=== PATIENT | female | born 1960 | race Caucasian/White ===

== ENCOUNTER 2017-11-22 17:14 | Emergency (ER) | payer BC ==
--- NOTE | 2017-11-22 17:31 | EDM.PDOC ---
ED HPI GENERAL MEDICAL PROBLEM - General Chief Complaint: General Stated Complaint: right eye seeing black objects Time Seen by Provider: 11/22/17 17:20 Source of Information: Reports: Patient, Family (), Old Records ([facility] chart/EMR), Other ([facility] EMR) History Limitations: Reports: No Limitations - History of Present Illness INITIAL COMMENTS - FREE TEXT/NARRATIVE: The patient was brought to the emergency room via private automobile by her for evaluation of sudden onset dark spots representing possible floaters in her right eye with symptoms starting shortly prior to arrival. She denies any blurred vision, diplopia, eye injury, drainage, etc.. No history of recent headaches, other visual changes, change in mental status, or other change in neurological status. The patient denies any chest pain/pressure, heart flutter, dizziness, orthostasis, orthopnea, diaphoresis, paresthesias, recent decreased exercise tolerance, or any other anginal-type symptoms. No recent history of abdominal pain, heartburn, nausea, diarrhea, melena, gross hematochezia, or any food intolerance, including fatty foods, etc.. The patient also denies any recent fever, cough, wheezing, dyspnea, etc.. She denies any pain or discomfort other than stable postoperative 2/10 neck pain with recent surgery as below. She does take a daily aspirin and fish oil, however no other NSAIDs or anticoagulants. 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 (see below) (None) back of neck Pain Score (Numeric/FACES): 2 - Related Data Allergies Allergy/AdvReac Type Severity Reaction Status Date / Time ampicillin Allergy Rash Verified 11/22/17 17:24 cefdinir [From Omnicef] Allergy UNKNOWN Verified 11/22/17 17:24 cefprozil [From Cefzil] Allergy Burning Verified 11/22/17 17:24 ciprofloxacin [From Cipro] Allergy Muscle Verified 11/22/17 17:24 Weakness sulfamethoxazole Allergy HEMORRHOIDS Verified 11/22/17 17:24 [From Bactrim] trimethoprim [From Bactrim] Allergy HEMORRHOIDS Verified 11/22/17 17:24 Home Meds: Home Meds Cholecalciferol (Vitamin D3) [Vitamin D3] 5,000 unit PO DAILY 07/01/16 [History] Hydrochlorothiazide 25 mg PO DAILY 07/01/16 [History] Hydrocortisone Acetate [Anucort-HC] 25 mg RECTAL ASDIRECTED 07/01/16 [History] Lisinopril 20 mg PO BID 07/01/16 [History] Multivitamin [Daily Multiple Vitamin] 1 tab PO DAILY 07/01/16 [History] Polyethylene Glycol 3350 [MiraLAX] 17 gm PO DAILY PRN 07/01/16 [History] Acetaminophen 650 mg PO Q6HR PRN 11/22/17 [History] Calcium Carbonate [Tums Extra Strength] 750 mg PO ASDIRECTED PRN 11/22/17 [ History] Levothyroxine Sodium [Synthroid] 75 mcg PO BEDTIME #60 tablet 11/22/17 [Rx] Non-Formulary Medication [NF Drug] 5 mg PO DAILY 11/22/17 [History] Psyllium Husk [Metamucil] 2 tsp PO DAILY 11/22/17 [History] Ubidecarenone [Co Q-10] 200 mg PO DAILY 11/22/17 [History] metFORMIN [Glucophage] 500 mg PO DAILY 11/22/17 [History] Past Medical History HEENT History: Reports: Impaired Vision. Denies: Allergic Rhinitis, Cataract, Glaucoma, Hard of Hearing, Macular Degeneration, Retinal Detachment Other HEENT History: She wears glasses. Cardiovascular History: Reports: Arrhythmia, Hypertension, Other (See Below). Denies: Afib, Aneurysm, Blood Clots/VTE/DVT, CAD, Heart Murmur, High Cholesterol , MO, PVD, Syncope Other Cardiovascular History: PVCs per EKG on 10/18/14. Left ventricular hypertrophy by echocardiogram in 2010 as below. Respiratory History: Reports: Intubation, Previous, Sleep Apnea, Other (See Below). Denies: Asthma, COPD, Intubation, Difficult, PE, Pneumothorax, TB Other Respiratory History: Severe obstructive sleep apnea with patient compliant with her CPAP with current therapy of 12 cm of water. Gastrointestinal History: Reports: Chronic Constipation, GERD, Other (See Below) . Denies: Celiac Disease, Cholelithiasis, Chronic Diarrhea, Colon Polyp, Diverticulosis, Fecal Incontinence, Gastritis, Hepatitis, Hiatal Hernia, Inflammatory Bowel Disease, Irritable Bowel Syndrome, Jaundice, Pancreatitis, PUD Other Gastrointestinal History: Rectal bleeding secondary anal fissure by colonoscopy on 07/01/16. Genitourinary History: Reports: Chronic Renal Insuffiency, Urinary Incontinence , Other (See Below). Denies: Acute Renal Failure, Renal Calculus, STD, UTI, Recurrent Other Genitourinary History: Borderline grade 2 renal insufficiency. Cystocele requiring repair as below. 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 Denies: Endometriosis, Prolapsed Uterus, Spontaneous : 2 Para: 2 LMP (Approximate): Other (See Below) Other OB/BYN History: Menopause age 52. Full term without complications during pregnancies or deliveries. Musculoskeletal History: Reports: Arthritis, Back Pain, Chronic, Neck Pain, Chronic, Osteoarthritis. Denies: Fracture, Gout, RA, SLE Other Musculoskeletal History: Chronic right foot pain secondary to lipoma. Lumbar and cervical spinal stenosis with chronic neck and back pain. Neurological History: Reports: Headaches, Chronic, Neuropathy, Peripheral, Other (See Below). Denies: Cerebral Aneurysms, Concussion, CVA, Head Trauma, Migraines, MS, Parkinson's, Seizure, TIA Other Neuro History: Chronic headaches prior to TMJ surgery as below. Psychiatric History: Reports: None. Denies: Abuse, Victim of, ADD, ADHD, Addiction, Anxiety, Depression, Psych Hospitalization(s), PTSD, Suicide Attempt , Suicidal Ideation Endocrine/Metabolic History: Reports: Hypothyroidism, Multinodular Thyroid, Obesity/BMI 30+, Other (See Below). Denies: Diabetes, Gestational, Diabetes, Type I, Diabetes, Type II, Diabetes Mellitus, Type 3c, Hyperthyroidism, IDDM Other Endocrine/Metabolic History: Hyperglycemia. Benign thyroid cysts/nodules. Hematologic History: Reports: None. Denies: Anemia, Blood Transfusion(s), Iron Deficiency Immunologic History: Reports: None. Denies: AIDS, HIV, SLE Oncologic (Cancer) History: Reports: Cervix, Other (See Below). Denies: Basal Cell Carcinoma, Breast, Hodgkin's Lymphoma, Leukemia, Lymphoma, Malignant Melanoma, Non-Hodgkin's Lymphoma, Ovarian, Squamous Cell Carcinoma Other Oncologic History: Cervical atypia requiring cryotherapy in 1991 as below Dermatologic History: Reports: None. Denies: Eczema, Psoriasis - Infectious Disease History Infectious Disease History: Reports: Chicken Pox, Other (See Below). Denies: C- Difficile, Measles, Meningitis, Mononucleosis, MRSA, Mumps, Pertussis (Whooping Cough), Rheumatic Fever, Rubella, Scarlet Fever, Shingles, TB, VRE Other Infectious Disease History: Rabies exposure at age 3 - Past Surgical History Head Surgeries/Procedures: Reports: None HEENT Surgical History: Reports: Adenoidectomy, Radial Keratotomy, Tonsillectomy , Other (See Below). Denies: Cataract Surgery, Eye Surgery, Laser Surgery, LASIK, Myringotomy w Tube(s), Naso-Sinus Surgery Other HEENT Surgeries/Procedures: Bilateral TMJ surgery in 1985. Tonsillectomy and possible adenoidectomy at age 16. [place] teeth extraction 4 in about 1984. Cardiovascular Surgical History: Reports: None. Denies: Varicose Respiratory Surgical History: Reports: None. Denies: Thoracentesis GI Surgical History: Reports: Appendectomy, Colonoscopy, Other (See Below). Denies: Cholecystectomy, EGD, Hernia, Abdominal, Hernia, Inguinal, Hernia Repair /Other, Polypectomy Other GI Surgeries/Procedures: Appendectomy in 1983. Last colonoscopy on with previous colonoscopy in 2014. Female Surgical History: Reports: Cervical Cryotherapy, Tubal Ligation, Other (See Below). Denies: Breast Biopsy, Breast Implant, Section, D&C , Hysterectomy, Oophorectomy, Salpingo-Oophorectomy Other Female Surgeries/Procedures: Bilateral tubal ligation in 1984. Cystocele and rectocele repair in about 2007. Cryotherapy of atypical Pap smear in about 1991. Endocrine Surgical History: Reports: None. Denies: Thyroid Biopsy Neurological Surgical History: Reports: C-Spine, Discectomy, Laminectomy, Spinal Fusion, Other (See Below). Denies: Lumbar Spine, Sacral Spine, Scoliosis , Thoracic Spine, Vertebroplasty Other Neurological Surgeries/Procedures: C5-C7 laminectomy and partial spinal fusion on 10/05/17 Musculoskeletal Surgical History: Reports: Ganglion Cyst, Other (See Below). Denies: Arthroscopic Procedure, Carpal Tunnel, Joint Replacement, ORIF, Shoulder Surgery Other Musculoskeletal Surgeries/Procedures:: Ganglion cyst excision from the right wrist at age 13. Oncologic Surgical History: Reports: None Dermatological Surgical History: Reports: None - Past Imaging History Past Imaging History: Reports: Cardiac Echo (Echocardiogram on 01/18/11 with ejection fraction of 67% and findings as above.), CAT Scan (CT of the head on 08/15/17.), Mammogram (Last mammogram in about 2016), MRI (MRI of the cervical spine on 08/18/17. MRI of the right foot on 06/09/16.), Sleep Study (Sleep study on 09/06/12.), Stress Testing (Stress echocardiogram in about 2002), Ultrasound ( Bilateral Renal ultrasound on 05/18/16. Thyroid ultrasound on 10/21/14. Right breast ultrasound on 02/03/15. Pelvic ultrasound on 10/05/10.) Social & Family History - Tobacco Use Smoking Status *Q: Never Smoker Tobacco Use Within Last Twelve Months: No Used Tobacco, but Quit: No Smoking Cessation Information Provided To Patient: No Second Hand Smoke Exposure: No Second Hand Smoke Education Provided: No - Caffeine Use Caffeine Use: Reports: Coffee (One cup per day), Soda (1 soda per month). Denies: Energy Drinks, Tea - Alcohol Use Alcohol Use History: No Days Per Week of Alcohol Use: 0 Number of Drinks Per Day: 0 Number of Drinks Per Day Comment: No previous DWIs, problems with alcohol abuse , etc. 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 ED EXAM, GENERAL - Physical Exam Exam: See Below Exam Limited By: Uncooperative General Appearance: Alert, WD/WN, No Apparent Distress Eye Exam: Bilateral Eye: EOMI, Normal Fundi, Normal Inspection (No nystagmus. Patient wearing glasses.), PERRL, Vision Changes (20/15 right eye, 20/40 left eye both with correction) Ears: Normal External Exam, Normal Canal, Hearing Grossly Normal, Normal TMs Nose: Normal Inspection, Normal Mucosa, No Blood Throat/Mouth: Normal Inspection, Normal Lips, Normal Teeth, Normal Gums, Normal Oropharynx, Normal Voice, No Airway Compromise. No: Dysphagia, Perioral Cyanosis Head: Atraumatic, Normocephalic. No: Facial Swelling, Facial Tenderness, Sinus Tenderness Neck: Normal Inspection, Supple, Non-Tender, Full Range of Motion. No: Carotid Bruit, Lymphadenopathy (L), Lymphadenopathy (R), Thyromegaly Respiratory/Chest: No Respiratory Distress, Lungs Clear, Normal Breath Sounds, No Accessory Muscle Use, Chest Non-Tender. No: Pleural Rub, Retractions Cardiovascular: Normal Peripheral Pulses, Regular Rate, Rhythm, No Edema, No Gallop, No JVD, No Murmur, No Rub. No: Gallop/S3, Gallop/S4, Friction Rub Peripheral Pulses: 2+: Radial (L), Radial (R), Dorsalis Pedis (L), Dorsalis Pedis (R) GI/Abdominal: Normal Bowel Sounds, Soft, Non-Tender, No Organomegaly, No Distention, No Abnormal Bruit, No Mass. No: Guarding (Female) Exam: Deferred Rectal (Female) Exam: Deferred Back Exam: Normal Inspection, Full Range of Motion. No: CVA Tenderness (L), CVA Tenderness (R), Muscle Spasm Extremities: Normal Inspection, Normal Range of Motion, Non-Tender, Normal Capillary Refill, Pedal Edema (Trace bilateral pedal/pretibial edema). No: Yvonne's Sign Neurological: Alert, Oriented, CN II-XII Intact, Normal Cognition, Normal Gait, Normal Reflexes (Negative Babinski's, finger to nose, and pronator rotation tests. No evidence of facial paresis, tongue deviation, orthostasis, etc.. Excellent reverse thought processes.), No Motor/Sensory Deficits Psychiatric: Normal Affect, Normal Mood Skin Exam: Warm, Dry, Intact, Normal Color, No Rash. No: Diaphoretic, Ecchymosis, Petechiae, Wound/Incision Lymphatic: No Adenopathy Course - Vital Signs Last Recorded V/S: Last Vital Signs Temp 36.6 C 11/22/17 17:20 Pulse 71 11/22/17 18:45 Resp 16 11/22/17 17:35 BP 143/64 H 11/22/17 18:45 Pulse Ox 100 11/22/17 18:45 Vital Signs - 24 hr 11/22/17 11/22/17 11/22/17 17:19 17:20 17:35 Temperature [ 36.6 C Oral] Pulse, 77 81 76 Peripheral [ Right Pulse Oximetry] Respiratory 16 16 Rate Blood Pressure 180/68 H 187/62 H 179/66 H [Right Upper Arm] O2 Sat by Pulse 100 99 100 Oximetry 11/22/17 11/22/17 18:20 18:45 Temperature [ Oral] Pulse, 73 71 Peripheral [ Right Pulse Oximetry] Respiratory Rate Blood Pressure 158/61 H 143/64 H [Right Upper Arm] O2 Sat by Pulse 99 100 Oximetry - Orders/Labs/Meds Orders: Active Orders 24 hr Category Date Time Status Cardiac Monitoring [RC] . DIRECTED Care 11/22/17 17:33 Active Head wo Cont [CT] Stat Exams 11/22/17 17:32 Taken Obtain Past Medical Record [OM.PC] Routine Oth 11/22/17 17:33 Active Labs: Laboratory Tests 11/22/17 11/22/17 11/22/17 Range/Units 17:35 17:35 17:35 WBC 8.4 (4.0-10.2) K/uL RBC 4.64 (3.77-5.09) M/uL Hgb 13.4 (11.7-15.5) g/dL Hct 41.1 (34.0-46.0) % MCV 88.6 (84.0-98.0) fL MCH 28.9 (28.2-33.3) pg MCHC 32.6 (31.7-36.0) g/dL RDW 13.9 (11.2-14.1) % Plt Count 360 H (150-350) K/uL Neut % (Auto) 52.5 (45.0-80.0) % Lymph % (Auto) 33.8 (10.0-50.0) % [place] % (Auto) 10.6 (2.0-14.0) % Eos % (Auto) 2.6 (0.0-5.0) % Baso % (Auto) 0.5 (0.0-2.0) % Neut # (Auto) 4.40 (1.40-7.00) K/uL Lymph # (Auto) 2.83 (0.50-3.50) K/uL [place] # (Auto) 0.89 (0.00-1.00) K/uL Eos # (Auto) 0.22 (0.00-0.50) K/uL Baso # (Auto) 0.04 (0.00-0.20) K/uL Sodium 141 (136-145) mmol/L Potassium 3.7 (3.5-5.1) mmol/L Chloride 101 (98-107) mmol/L Carbon Dioxide 30.6 (21.0-32.0) mmol/L BUN 24 H (7-18) mg/dL Creatinine 1.16 (0.51-1.17) mg/dL Est Cr Clr Drug Dosing 51.41 mL/min Estimated GFR (MDRD) 48 mL/min Glucose 109 H (74-106) mg/dL Lactic Acid 1.2 (0.4-2.0) mmol/L Uric Acid 6.4 (2.6-7.2) mg/dL Calcium 9.4 (8.5-10.1) mg/dL Magnesium 1.9 (1.8-2.4) mg/dL Total Bilirubin 0.3 (0.2-1.0) mg/dL AST 25 (15-37) U/L ALT 41 (12-78) U/L Alkaline Phosphatase 83 (46-116) IU/L Total Protein 8.0 (6.4-8.2) g/dL Albumin 3.7 (3.4-5.0) g/dL TSH, Ultra Sensitive 6.493 H (0.358-3.740) mIU/mL Meds: None - Radiology Interpretation Free Text/Narrative:: ui software developer showed normal sinus rhythm with heart rate in the 70s with no ectopy or arrhythmia. Telephone consultation at 18:34 hours with the radiology department at [facility]. Preliminary verbal report of noncontrast CT scan of the head is negative for acute changes including cerebral hemorrhages, CVA, etc. CT Results Date: 11/22/17 CT Results Time: 18:34 Departure - Departure Time of Disposition: 19:05 Disposition: Home, Self-Care 01 Condition: Good Clinical Impression: Vitreous floaters of right eye, Hypothyroidism (acquired), Peptic reflux disease, Renal insufficiency, PVCs (premature ventricular contractions) Hypertension Qualifiers: Hypertension type: essential hypertension Qualified Code(s): I10 - Essential ( primary) hypertension Osteoarthritis Qualifiers: Osteoarthritis location: multiple joints Osteoarthritis type: primary Qualified Code(s): M15.0 - Primary generalized (osteo)arthritis - Discharge Information Prescriptions: Levothyroxine Sodium [Synthroid] 75 mcg PO BEDTIME #60 tablet Instructions: Eye Floaters Referrals: Fior Means NP [Primary Care Provider] - Forms: ED Department Discharge Additional Instructions: 1. Follow-up with your eye Dr. FISH tomorrow as discussed. 2. Followup with your regular provider in 7-10 days as directed. Bring these discharge instructions with you to that visit. 3. Close follow-up of your blood pressure and pulses by your regular providers 4. TSH should be repeated in 4 weeks secondary to change of your Synthroid today 5. Do not use any ibuprofen, Aleve, or other NSAIDs and stop your aspirin and fish oil for now until otherwise directed by your regular providers. 6. Immediately after this visit verify that your cellular telephone's voicemail has been activated and is empty. Also verify that your home telephone 's answering machine is operating properly and has space to receive messages. Note that it is sometimes necessary for us to be able to contact you at a later date to discuss your medical care. 7. Depending on results of eye exam tomorrow consider further ophthalmologic referral, carotid artery Doppler studies, repeat echocardiogram, etc. l - Problem List & Annotations (1) Vitreous floaters of right eye SNOMED Code(s): 45193639 Code(s): H43.391 - OTHER VITREOUS OPACITIES, RIGHT EYE Status: Acute Priority: High Onset Date: 11/22/17 Annotation/Comment:: Normal eye exam today despite clinical moderate floaters of the right eye. Note that her vision is actually worse in her left eye rather than her right eye with his last eye exam about 2-3 years ago. Follow-up with her eye doctor POL[facility] with further workup depending on her clinical course as per discharge instructions. Avoid anticoagulants including aspirin, fish oil, NSAIDs, etc. until condition stabilizes. (2) Hypertension SNOMED Code(s): 99451225 Code(s): I10 - ESSENTIAL (PRIMARY) HYPERTENSION Status: Chronic Priority : Medium Annotation/Comment:: Blood pressure somewhat elevated with lisinopril apparently recently increased. Continue to observe her blood pressures closely through her regular provider. No other change in medical therapy for now. Qualifiers: Hypertension type: essential hypertension Qualified Code(s): I10 - Essential (primary) hypertension (3) Hypothyroidism (acquired) SNOMED Code(s): 926200678 Code(s): E03.9 - HYPOTHYROIDISM, UNSPECIFIED Status: Chronic Priority: Medium Annotation/Comment:: TSH elevated today. Note occasional Tums use. Synthroid to be increased and taken at bedtime to ensure that this is taken on an empty stomach. TSH to be repeated in 4 weeks. (4) Osteoarthritis SNOMED Code(s): 995484708 Code(s): M19.90 - UNSPECIFIED OSTEOARTHRITIS, UNSPECIFIED SITE Status: Chronic Priority: Medium Annotation/Comment:: Note recent cervical surgery as above. Otherwise stable. Avoid NSAIDs for now secondary to new onset floaters , although she has not been taking these recently. Qualifiers: Osteoarthritis location: multiple joints Osteoarthritis type: primary Qualified Code(s): M15.0 - Primary generalized (osteo)arthritis (5) PVCs (premature ventricular contractions) SNOMED Code(s): 19093937 Code(s): I49.3 - VENTRICULAR PREMATURE DEPOLARIZATION Status: Chronic Priority: Medium Annotation/Comment:: Distant history of PVCs. No arrhythmia noted today. (6) Peptic reflux disease SNOMED Code(s): 751536462 Code(s): K21.9 - GASTRO-ESOPHAGEAL REFLUX DISEASE WITHOUT ESOPHAGITIS Status: Chronic Priority: Medium Annotation/Comment:: Stable by patient history with only very occasional OTC Tums use. (7) Renal insufficiency SNOMED Code(s): 408995882, 965324562 Code(s): N28.9 - DISORDER OF KIDNEY AND URETER, UNSPECIFIED Status: Chronic Priority: Medium Annotation/Comment:: Stable by history and today's blood work. - Problem List Review Problem List Initiated/Reviewed/Updated: Yes - My Orders Last 24 Hours: My Active Orders 11/22/17 17:32 Head wo Cont [CT] Stat 11/22/17 17:33 Cardiac Monitoring [RC] . DIRECTED Obtain Past Medical Record [OM.PC] Routine - Assessment/Plan Last 24 Hours: My Active Orders 11/22/17 17:32 Head wo Cont [CT] Stat 11/22/17 17:33 Cardiac Monitoring [RC] . DIRECTED Obtain Past Medical Record [OM.PC] Routine Assessment:: As above Plan: As above. Extensive precautions were given to the patient and her , who are in agreement with the treatment plan. See Patient Instructions for further treatment and plan.
[2017-11-22 19:08] VITALS: BP 143/64
== END 2017-11-22 19:05 | disposition home or self-care (01) ==
LOC: LL.ED 17:14
DX: H43.391 Other vitreous opacities, right eye (principal); I12.9 Hypertensive chronic kidney disease with stage 1 through stage 4 chronic kidney disease, or unspecified chronic kidney disease; N18.9 Chronic kidney disease, unspecified; E03.9 Hypothyroidism, unspecified; K21.9 Gastro-esophageal reflux disease without esophagitis; I49.3 Ventricular premature depolarization; M15.0 Primary generalized (osteo)arthritis; Z88.1 Allergy status to other antibiotic agents; Z88.2 Allergy status to sulfonamides; Z88.8 Allergy status to other drugs, medicaments and biological substances
CPT/HCPCS: 36415; 70450; 80053; 83605; 83735; 84443; 84550; 85025; 99284